=== PATIENT | male | born 1975 ===

== ENCOUNTER 2018-09-14 07:38 | Outpatient (CLI) | payer OTHER | END 2018-09-14 12:10 | disposition home or self-care (01) | LOC: NUCLEAR 07:38 | DX: I50.9 Heart failure, unspecified (principal) | CPT/HCPCS: 78452; 93017; A9500 ==

== ENCOUNTER 2018-10-18 10:25 | Outpatient (CLI) | payer OTHER | END 2018-10-18 13:01 | disposition home or self-care (01) | LOC: LAB 10:25 | DX: E03.8 Other specified hypothyroidism (principal); E06.3 Autoimmune thyroiditis; K90.89 Other intestinal malabsorption; D63.8 Anemia in other chronic diseases classified elsewhere; D51.3 Other dietary vitamin B12 deficiency anemia; D50.8 Other iron deficiency anemias; D51.1 Vitamin B12 deficiency anemia due to selective vitamin B12 malabsorption with proteinuria; D51.0 Vitamin B12 deficiency anemia due to intrinsic factor deficiency; I10 Essential (primary) hypertension; D55.0 Anemia due to glucose-6-phosphate dehydrogenase [G6PD] deficiency ==

== ENCOUNTER 2018-10-18 11:23 | Outpatient (CLI) | payer OTHER | END 2018-10-18 11:34 | disposition home or self-care (01) | LOC: SONOGRAMA 11:23 | DX: E03.8 Other specified hypothyroidism (principal); E06.3 Autoimmune thyroiditis; D51.3 Other dietary vitamin B12 deficiency anemia; D63.8 Anemia in other chronic diseases classified elsewhere; E04.1 Nontoxic single thyroid nodule ==